=== PATIENT | female | born 1945 | race Caucasian/White ===

== ENCOUNTER 2023-11-28 09:56 | Emergency (ER) | payer OTHER, MEDICARE | END 2023-11-28 13:02 | disposition home or self-care (01) | LOC: JP.ED 09:56 | DX: S63.502A Unspecified sprain of left wrist, initial encounter (principal); S05.12XA Contusion of eyeball and orbital tissues, left eye, initial encounter; S80.01XA Contusion of right knee, initial encounter; S09.90XA Unspecified injury of head, initial encounter; I11.0 Hypertensive heart disease with heart failure; N18.2 Chronic kidney disease, stage 2 (mild); I25.10 Atherosclerotic heart disease of native coronary artery without angina pectoris; E78.00 Pure hypercholesterolemia, unspecified; I25.2 Old myocardial infarction; Z79.82 Long term (current) use of aspirin; Z79.899 Other long term (current) drug therapy; Z90.49 Acquired absence of other specified parts of digestive tract; Z88.8 Allergy status to other drugs, medicaments and biological substances; W01.198A Fall on same level from slipping, tripping and stumbling with subsequent striking against other object, initial encounter; Y92.512 Supermarket, store or market as the place of occurrence of the external cause; Y93.89 Activity, other specified; Y99.0 Civilian activity done for income or pay | CPT/HCPCS: 29125; 70450; 70486; 73110-26-LT; 73110-LT; 73562-26-RT; 73562-RT; 99284-25 ==

== ENCOUNTER 2024-11-05 18:24 | Emergency (ER) | payer MEDICARE ==
[2024-11-05] MEDS ORDERED: Sodium Chloride 0.9% 10 ML Syringe FLUSH PRN (18:54)
[2024-11-05 19:08] LABS: BASOPHILS PERCENT AUTO 0.1 % (0.1-1.3); EOSINOPHILS ABSOLUTE AUTO 0.11 K/uL (0.00-0.40); EOSINOPHILS PERCENT AUTO 1.2 % (0.0-5.4); HEMATOCRIT 37.6 % (34.3-46.0); HEMOGLOBIN 12.8 g/dL (11.2-15.5); IMMATURE GRAN ABSOLUTE AUTO 0.03 K/uL (0.00-0.23); IMMATURE GRAN PERCENT AUTO 0.3 % (0.0-0.7); LYMPHOCYTES ABSOLUTE AUTO 1.66 K/uL (0.8-3.3); LYMPHOCYTES PERCENT AUTO 17.8 % (11.4-47.7); MEAN CORPUSCULAR HEMOGLOBIN 31.4 pg (31.6-35.5); MEAN CORPUSCULAR VOLUME 92.2 fL (81.4-99.0); MONOCYTES ABSOLUTE AUTO 0.47 K/uL (0.20-0.90); NEUTROPHILS ABSOLUTE AUTO 7.05 K/uL (1.0-7.6); NEUTROPHILS PERCENT AUTO 75.6 % (40.0-78.1); PLATELET COUNT,PLT 234 K/uL (130-375); RED BLOOD CELL COUNT 4.08 M/uL (3.77-5.24); WHITE BLOOD CELL COUNT,WBC 9.3 K/uL (3.2-11.0)
[2024-11-05 19:09] LABS: BASOPHILS ABSOLUTE AUTO 0.01 K/uL (0.00-0.10)
[2024-11-05 19:36] LABS: A/G RATIO 1.1 (1.2-2.2); ALANINE AMINOTRANSFERASE,ALT 26 U/L (12-78); ALBUMIN 3.6 g/dL (3.4-5.0); ALKALINE PHOSPHATASE 52 U/L (46-116); ANION GAP 16.2 mmol/L (5.0-14.0); ASPARTATE AMNIOTRANSFERASE,AST 23 U/L (15-37); BILIRUBIN TOTAL 0.6 mg/dL (0.2-1.0); BLOOD UREA NITROGEN,BUN 19 mg/dL (7-18); C-REACTIVE PROTEIN < 0.50 mg/dL (<0.50); CALCIUM 8.6 mg/dL (8.5-10.1); CARBON DIOXIDE,CO2 24 mmol/L (21-32); CHLORIDE,CL 102 mmol/L (100-108); CREATININE 1.4 mg/dL (0.6-1.0); EST CRCL DRUG DOSING (CG) 24.17 mL/min; ESTIMATED GFR 39 mL/min (>60); GLUCOSE RANDOM 194 mg/dL (74-106); POTASSIUM,K 3.2 mmol/L (3.6-5.2); PRO B-TYPE NATRIUR PEPT,BNPPRO 4433 pg/mL (5-450); PROTEIN TOTAL,TP 6.9 g/dL (6.4-8.2); SODIUM,NA 139 mmol/L (140-148); TROPONIN I HIGH SENSITIVITY 10.5 pg/mL (<=60.3)
[2024-11-05] MEDS: Aspirin 81 MG Tab.Chew PO ONE (19:50)
[2024-11-05] MEDS: Nitroglycerin/D5W 25 MG/250 ML BOTTLE IV SCH (19:51)
[2024-11-05] MEDS: Sodium Chloride 0.9% 1,000 ML IV SCH (20:02)
[2024-11-05] MEDS: Sodium Chloride 0.9% 100 ML IV SCH (20:31)
[2024-11-05] MEDS: Iopamidol 755 Mg/ML 100 ML Bottle IV ONE (20:31)
[2024-11-05] MEDS: Sodium Chloride 0.9% 500 ML IV ONE (21:30)
[2024-11-05] MEDS: fentaNYL 50 MCG/ML SDV IVPUSH ONE (22:14)
[2024-11-05] MEDS: Prochlorperazine 10 MG/2 ML SDV IVPUSH ONE (23:02)
[2024-11-05] MEDS: Prochlorperazine 10 MG/2 ML SDV ONE (23:12)
== END 2024-11-05 23:05 ==
LOC: JP.ED 18:24
DX: I71.00 Dissection of unspecified site of aorta (principal); I12.9 Hypertensive chronic kidney disease with stage 1 through stage 4 chronic kidney disease, or unspecified chronic kidney disease; N18.2 Chronic kidney disease, stage 2 (mild); R06.89 Other abnormalities of breathing; I25.2 Old myocardial infarction; Z88.8 Allergy status to other drugs, medicaments and biological substances; Z79.899 Other long term (current) drug therapy; Z90.49 Acquired absence of other specified parts of digestive tract
CPT/HCPCS: 36415; 71045; 71275; 80053; 83880; 84484; 85025; 85379; 86140; 86850; 86900; 86901; 93005; 96361; 96374; 96375; 99285; A9270; J0780; J2305; Q9967; 93010